=== PATIENT | female | born 1955 | race Caucasian/White ===

== ENCOUNTER 2020-11-29 17:16 | Emergency (ER) | payer BC, SELFPAY ==
[2020-11-29 17:19] VITALS: BP 177/93; PULSE 67; RESP 18; TEMP 36.7; O2SAT 93; BMI 24.8
--- NOTE | 2020-11-29 17:26 | XR_ITS ---
PROCEDURE INFORMATION: Exam: XR Left Humerus Exam date and time: 11/29/2020 5:26 PM Age: 64 years old Clinical indication: Injury or trauma; Fall; Blunt trauma (contusions or hematomas); Arm, upper; Left; Injury date: 11/28/20; Injury details: Patient feel from porch after drinking; Additional info: Fall, elbow pain TECHNIQUE: Imaging protocol: XR Left humerus. Views: 2 or more views. Total images: 2 COMPARISON: No relevant prior studies available. FINDINGS: Bones/joints: Osteopenia. No humeral fractures are identified. AC joint alignment is normal. Glenohumeral alignment is normal. Visualized left ribs are intact. Oblique fracture in the lateral aspect of the radial head noted. Soft tissues: No gross soft tissue abnormalities. IMPRESSION: 1. No humeral fractures are identified. 2. Nondisplaced radial head fracture. 3. Osteopenia.
--- NOTE | 2020-11-29 17:26 | XR_ITS ---
PROCEDURE INFORMATION: Exam: XR Left Forearm Exam date and time: 11/29/2020 5:26 PM Age: 64 years old Clinical indication: Injury or trauma; Fall; Blunt trauma (contusions or hematomas); Arm, lower; Left; Injury date: 11/28/20; Injury details: Patient feel off porch after drinking yesterday; Additional info: Fall, elbow pain TECHNIQUE: Imaging protocol: XR Left forearm. Views: 2 views. Total images: 2 COMPARISON: No relevant prior studies available. FINDINGS: Bones/joints: Osteopenia. Nondisplaced fracture of the central to lateral radial head, better visualized on the elbow series. No acute fractures are evident in the mid or distal radius. Visualized distal humerus intact. Carpal bones intact and well aligned. On the lateral view the ulnar styloid appears mildly displaced but has well corticated margins favoring remote fracture. Contour irregularity in the lateral cortex of the radial styloid might indicate remote prior fracture as well, correlate for history of prior fractures. If the patient is symptomatic at the wrist, consider dedicated wrist radiographs. Soft tissues: Soft tissue swelling around the elbow and wrist. No foreign body. IMPRESSION: 1. Nondisplaced radial head fracture. 2. No other acute fractures are identified. 3. Question chronic ulnar styloid avulsion and mild cortical contour irregularity at the lateral margin of the distal radius suspicious for possible remote prior fracture. If the patient is acutely symptomatic at the wrist consider dedicated wrist radiographs for further characterization. 4. Mild soft tissue swelling around the elbow and wrist.
--- NOTE | 2020-11-29 17:26 | CT_ITS ---
PROCEDURE INFORMATION: Exam: CT Head Without Contrast Exam date and time: 11/29/2020 5:26 PM Age: 64 years old Clinical indication: Injury or trauma; Fall; Blunt trauma (contusions or hematomas); Without loss of consciousness; Injury details: Bruising around left eye; Additional info: Fall, head injury TECHNIQUE: Imaging protocol: Computed tomography of the head without contrast. Total images: 83 Radiation optimization: All CT scans at this facility use at least one of these dose optimization techniques: automated exposure control; mA and/or kV adjustment per patient size (includes targeted exams where dose is matched to clinical indication); or iterative reconstruction. COMPARISON: No relevant prior studies available. FINDINGS: Brain: Moderate generalized atrophy with Mild periventricular chronic microvascular changes consistent with the patient's advanced age. No extra-axial fluid collections. No evidence of acute intracranial hemorrhage. Akins-white differentiation is well maintained. No CT evidence of large territory acute or subacute intracranial ischemia/infarct. No intracranial mass lesions. No midline shift or herniation. Cerebral ventricles: Mild compensatory ventriculomegaly secondary to central atrophy. Paranasal sinuses: Opacified left anterior ethmoid/medial left frontal sinus suggesting mild chronic sinus inflammatory disease. Mastoid air cells: Visualized mastoid air cells are clear. Orbital cavity: Visualized orbital contents demonstrate no evidence of acute abnormality. Vasculature: Mild calcific atherosclerosis. No asymmetric vascular hyperdensities suggestive of thrombosis are identified. Bones/joints: The calvarium and visualized facial bones are intact. Soft tissues: Left periorbital preseptal soft tissue swelling/hematoma, with no underlying fracture or foreign body. No post septal intraorbital soft tissue swelling or hematoma was evident.. Other findings: The IACs are grossly normal. The sella is grossly normal. IMPRESSION: 1. No acute intracranial process. No intracranial hemorrhage or mass effect. 2. Atrophy and chronic microvascular changes consistent with the patient's advanced age. 3. Left periorbital preseptal soft tissue swelling/hematoma with no underlying fracture or foreign body. Orbital contents are normal.
--- NOTE | 2020-11-29 17:26 | CT_ITS ---
PROCEDURE INFORMATION: Exam: CT Cervical Spine Without Contrast Exam date and time: 11/29/2020 5:26 PM Age: 64 years old Clinical indication: Injury or trauma; Fall; Blunt trauma; Additional info: Fall, head injury TECHNIQUE: Imaging protocol: Computed tomography images of the cervical spine without contrast. Total images: 191 Radiation optimization: All CT scans at this facility use at least one of these dose optimization techniques: automated exposure control; mA and/or kV adjustment per patient size (includes targeted exams where dose is matched to clinical indication); or iterative reconstruction. COMPARISON: CT FACIAL BONES WO CON 11/29/2020 6:18 PM FINDINGS: Bones/joints: Osteopenia. Craniocervical alignment is normal. The odontoid is intact. No fractures. Straightening of cervical lordosis suggesting a possible element of muscular strain/spasm. 2 mm degenerative anterolisthesis C3-C4 and C7-T1. No blastic or lytic lesions. Aerated bone cyst in the anterior C5 vertebral body incidentally noted. No compressive soft disc protrusion or extrusion is evident by CT. Broad posterior mixed spondylotic protrusions are present from C3-C4 through C6-C7 measuring up to 3 mm AP. Discs/Spinal canal/Neural foramina: The occipital condyles are intact. Moderate degenerative sclerosis and spurring at the atlantodens interval. No jumped or perched facets. Moderate left-sided degenerative facet hypertrophic change C3-C4. Moderate disc space narrowing and marginal spurring C4-C5 through C6-C7. Mild central canal stenosis C4-C5 through C6-C7. Moderate left foraminal stenosis C3-C4. Mild left foraminal stenosis C5-C6 and C6-C7. Moderate right foraminal stenosis C5-C6 and mild right foraminal stenosis C6-C7. Thyroid: The visualized thyroid gland is unremarkable. Lungs: Moderate bilateral apical pleural/parenchymal scarring. Vasculature: Severe atherosclerotic calcific plaque in the carotid bulbs. Soft tissues: Paraspinous soft tissues are unremarkable without significant soft tissue swelling or soft tissue hematoma. IMPRESSION: 1. No evidence of fracture or acute traumatic subluxation. 2. Osteopenia and degenerative changes as detailed above with multilevel mild central canal stenosis and multilevel bilateral foraminal stenoses. 3. Straightening of cervical lordosis suggesting a possible element of muscular strain/spasm. Mild degrees of degenerative anterolisthesis C3-C4 and C7-T1. 4. Severe calcific atherosclerosis.
--- NOTE | 2020-11-29 17:26 | XR_ITS ---
PROCEDURE INFORMATION: Exam: XR Left Elbow Exam date and time: 11/29/2020 5:26 PM Age: 64 years old Clinical indication: Injury or trauma; Fall; Blunt trauma (contusions or hematomas); Elbow; Left; Injury date: 11/28/20; Injury details: Patient feel off porch after drinking yesterday; Additional info: Fall, elbow pain TECHNIQUE: Imaging protocol: XR Left elbow. Views: 3 or more views. Total images: 3 COMPARISON: CR XR HUMERUS LT 11/29/2020 5:54 PM FINDINGS: Bones/joints: Osteopenia. Oblique lucency in the central to lateral radial head consistent with nondisplaced fracture. Moderate elbow joint effusion or hemarthrosis. Mild lateral epicondylar spurring. Soft tissues: Mild soft tissue swelling around the elbow. No foreign body. IMPRESSION: 1. Nondisplaced radial head fracture. 2. Moderate elbow joint effusion or hemarthrosis. 3. Osteopenia. 4. Soft tissue swelling around the elbow.
--- NOTE | 2020-11-29 17:27 | CT_ITS ---
PROCEDURE INFORMATION: Exam: CT Maxillofacial Without Contrast Exam date and time: 11/29/2020 5:27 PM Age: 64 years old Clinical indication: Injury or trauma; Fall; Blunt trauma (contusions or hematomas); Other: Around left eye; Additional info: Fall, left eye swelling TECHNIQUE: Imaging protocol: Computed tomography images of the face without contrast. Total images: 193 Radiation optimization: All CT scans at this facility use at least one of these dose optimization techniques: automated exposure control; mA and/or kV adjustment per patient size (includes targeted exams where dose is matched to clinical indication); or iterative reconstruction. COMPARISON: CT HEAD/BRAIN WO CON 11/29/2020 6:15 PM FINDINGS: Orbital cavity: Orbital contents are normal. Bones/joints: No fractures or other bone lesions are identified. TMJs are well aligned. Paranasal sinuses: Mucosal thickening in the medial left frontal sinus suggesting mild chronic sinus inflammatory disease. No fluid levels. The other paranasal sinuses are clear. Mastoid air cells: The mastoid air cells are clear. Soft tissues: Left periorbital preseptal soft tissue swelling/hematoma, with no underlying fracture or foreign body. No post septal intraorbital soft tissue swelling or hematoma was evident.. Submandibular/Parotid glands: The parotid and submandibular glands are unremarkable. Lymph nodes: No adenopathy. Vasculature: Severe atherosclerotic calcific plaque in the carotid bulbs. Brain: Visualized intracranial contents are unremarkable. The infratemporal fossae and accounts payable supervisor spaces are unremarkable. Nasopharynx: The nasopharynx is unremarkable. Oropharynx: The parapharyngeal spaces are unremarkable. The oropharynx is unremarkable. Larynx: Normal epiglottis. Other findings: The hypopharynx is unremarkable. Visualized larynx is unremarkable. IMPRESSION: 1. No facial fractures are identified. 2. Left periorbital preseptal soft tissue swelling/hematoma. No intraorbital hematoma/swelling. Orbital contents are normal. 3. Severe calcific atherosclerosis. 4. Mild chronic left frontal sinusitis.
--- NOTE | 2020-11-29 17:28 | [facility].EDGENADL ---
ED Disposition Clinical Impression: Fall Qualifiers: Encounter type: initial encounter Qualified Code(s): W19.XXXA - Unspecified fall, initial encounter Radial head fracture, closed Qualifiers: Encounter type: initial encounter Fracture alignment: nondisplaced Laterality: left Qualified Code(s): S52.125A - Nondisplaced fracture of head of left radius, initial encounter for closed fracture Concussion Qualifiers: Encounter type: initial encounter Loss of consciousness presence/duration: without LOC Qualified Code(s): S06.0X0A - Concussion without loss of consciousness, initial encounter Disposition: Home, Self-Care Condition on Discharge: Fair Instructions: DI for Wrist Fracture, DI for Alcohol Use Disorder, How to Prevent Falls Additional Instructions: You have been evaluated for fall, head injury and left arm injury. You have a nondisplaced radial head fracture, at the wrist. Also swelling near the elbow joint. Please keep splint in place. Follow-up with orthopedics in clinic. Take Tylenol and Motrin for pain. Avoid alcohol. Use care to avoid falls. Follow-up with your primary care doctor. Return to the emergency department at once for any new or worsening symptoms, headache, chest pain, vision changes, nausea, numbness, weakness, tingling in your hand Referrals: Provider,Referral, MD [Primary Care Provider] - Time of Disposition: 18:47 - Critical Care Critical Care Time: No Attestation: On , the high probability of a clinically significant, sudden or life threatening deterioration of the following system(s) required my full and direct attention, intervention and personal management. The time I documented below is in addition to time spent performing reported procedures but includes the following listed in this critical care notation. Medical Decision Making - Medical Records Medical records reviewed: Yes: I reviewed the patient's medical records. - Lloyd Inquiry Pt receiving controlled substance: No Vital Signs: 11/29/20 17:19 Temperature 98.0 F Temperature Source Oral Pulse Rate [Left Radial] 67 Respiratory Rate 18 Blood Pressure [Right Arm] 177/93 H Blood Pressure Mean [Right Arm] 121 Blood Pressure Source [Right Arm] Automatic Cuff Blood Pressure Position [Right Arm] Sitting 02 Sat by Pulse Oximetry 93 L Oxygen Delivery Method Room Air - Lab Data Lab Results 11/29/20 17:45: WBC 5.1, RBC 3.80 L, Hgb 11.3 L, Hct 35.3 L, MCV 92.8, MCH 29.7, MCHC 32.0, RDW 15.9, Plt Count 413, MPV 8.4, Neut % (Auto) 82.4 H, Lymph % (Auto) 9.4 L, [place] % (Auto) 4.6, Eos % (Auto) 2.3, Baso % (Auto) 1.3, Neut # (Auto) 4.2, Lymph # (Auto) 0.5 L, [place] # (Auto) 0.2, Eos # (Auto) 0.1, Baso # (Auto) 0.1 11/29/20 17:45: Sodium 136, Potassium 3.6, Chloride 99, Carbon Dioxide 32 H, Anion Gap 8.6, BUN 10, Creatinine 0.70, Estimated Creat Clear 56, Estimated GFR 85, Est GFR ( Amer) 102, Glucose 110 H, Calcium 9.1, Total Bilirubin 0.6, AST 27, ALT 11 L, Alkaline Phosphatase 140 H, Total Protein 7.3, Albumin 4.2, Globulin 3.1, Albumin/Globulin Ratio 1.4 Result diagrams: 11/29/20 17:45 11/29/20 17:45 Medical Decision Narrative: In summary this is a 64-year-old female with history of alcohol use disorder presenting to the emergency department with head injury, facial injury, left elbow injury after a fall. Patient clinically stable on arrival. Vital signs within normal limits. Concern for closed head injury, skull fracture, intracranial bleed. Concern for orbital floor fracture or other facial bone fracture. Also concern for elbow fracture. Will obtain noncontrast head CT, CT C-spine, CT facial bones. Will obtain x-rays of the left humerus, elbow, forearm. Initial laboratory results are reassuring. No significant anemia. No pancytopenia. No glucose or electrolyte abnormalities. Of note, patient does not have significant elevations in AST or ALT to suggest liver injury from alcohol use. X-rays of the left uppe
[2020-11-29 17:53] LABS: Basophils # 0.1 K/mm3 (0-0.2); Basophils % 1.3 % (0.1-2.0); Eosinophils # 0.1 K/mm3 (0.0-0.4); Eosinophils % 2.3 % (0.1-12.0); Hematocrit 35.3 % (37.0-47.0); Hemoglobin 11.3 g/dL (12.2-16.2); Lymphocytes # 0.5 K/mm3 (0.7-4.5); Lymphocytes % 9.4 % (10-50); Mean Corpuscular Hemoglobin 29.7 pg (27.0-31.2); Mean Corpuscular Volume 92.8 fl (81-99); Mean Platelet Volume 8.4 fl (7.4-10.4); Monocytes # 0.2 K/mm3 (0.1-1.0); Monocytes % 4.6 % (1.7-9.3); Neutrophils # 4.2 K/mm3 (1.8-7.8); Neutrophils % 82.4 % (37.0-80.0); Platelet Count 413 K/mm3 (142-424); Red Cell Distribution Width 15.9 % (11.5-17.5); White Blood Count 5.1 K/mm3 (4.8-10.8)
[2020-11-29 17:59] LABS: Chloride 99 mmol/L (98-107); Potassium 3.6 mmoL/L (3.5-5.1); Sodium 136 mmol/L (136-145)
[2020-11-29 18:02] LABS: Alanine Aminotransferase 11 U/L (12-78); Albumin Level 4.2 g/dl (3.5-5.0); Albumin/Globulin Ratio 1.4 (1.1-1.8); Alkaline Phosphatase 140 U/L (38-126); Anion Gap 8.6 mEq/L (5-15); Aspartate Amino Transferase 27 U/L (14-36); Bilirubin,Total 0.6 mg/dl (0.2-1.3); Blood Urea Nitrogen 10 mg/dl (7-17); Calcium 9.1 mg/dl (8.4-10.2); Carbon Dioxide 32 mmol/L (22.0-30.0); Creatinine Clearance Estimated 56 mL/min (50-200); Estimated Glomerular Filt Rate 85 ml/min (>60); GFR (African American) 102 ML/MIN (>60); Globulin 3.1 g/dL (1.3-3.2); Glucose 110 mg/dl (74-100); Total Protein,Serum 7.3 g/dl (6.3-8.2)
[2020-11-29 19:34] VITALS: BP 121/70; PULSE 78; RESP 17; TEMP 36.8; O2SAT 98
== END 2020-11-29 19:40 | disposition home or self-care (01) ==
PROVIDERS: Emergency Provider Emergency Medicine
DX: S52.125A Nondisplaced fracture of head of left radius, initial encounter for closed fracture (principal); S06.0X0A Concussion without loss of consciousness, initial encounter; W17.89XA Other fall from one level to another, initial encounter; Y92.009 Unspecified place in unspecified non-institutional (private) residence as the place of occurrence of the external cause
CPT/HCPCS: 70450; 70486; 72125; 73060; 73080; 73090; 80053; 85025; 99282